=== PATIENT | female | born 1935 | race Caucasian/White ===

== ENCOUNTER 2017-03-09 19:02 | Emergency (ER) | payer MEDICARE, OTHER ==
[~2017-03-09] VITALS: Ht 154.9 cm; Wt 86.7 kg
[~2017-03-09 19:02] MED LIST: ATAC32TA4 PO; LASI20TA PO; REST0.05 OU
[2017-03-09 19:08] VITALS: BP 196/87; PULSE 77; RESP 18; TEMP 98.5; O2SAT 100
[2017-03-09] MEDS ORDERED: REST0.05 EACH EYE (19:14)
[2017-03-09] MEDS ORDERED: ATAC16TA4 PO (19:14)
--- NOTE | 2017-03-09 19:25 | PD ---
HPI Chief Complaint: Fall Time Seen by Provider: 19:21 Travel History International Travel<30 days: No Contact w/Intl Traveler<30days: No Traveled to known affect area: No History of Present Illness HPI The patient is an 82-year-old female that fell at approximately 5 PM, she slipped on a wet floor at her nail place. She hit the occipital area in the midline. She does have a local tenderness but denies any headache, nausea or vomiting. She denies any focal neurologic change. She is not on any anticoagulants. She denies any other injury other than muscle aches around the trapezius. Specifically, she denies any neck pain. PFSH Past Medical History Cancer: No Cardiomyopathy: Yes Cardiovascular Problems: Yes (HEART MURMUR) Diabetes: No Diminished Hearing: No Glaucoma: Yes Hepatitis: No Hiatal Hernia: No Hypertension: Yes Medical other: Yes (FRACTURED MANDILBLE) Respiratory: No Immunizations Current: Yes (flu [id number].) Thyroid Disease: No Tetanus Vaccination: Unknown ?: Not Menopausal: Yes : 0 Past Surgical History Abdominal Surgery: No Cardiac Surgery: No Ear Surgery: No Endocrine Surgery: No Eye Surgery: Yes (CATARACTS) Genitourinary Surgery: No Gynecologic Surgery: No Neurologic Surgery: No Oral Surgery: No Thoracic Surgery: Yes (BILATERAL BREAST BIOPSIES) Tonsillectomy: Yes Other Surgery: Yes (breast cysts removed- benign.) Social History Alcohol Use: Yes ("GLASS OF WINE DAILY") Tobacco Use: No (QUIT AGE 62) Substance Use: No Allergies-Medications (Allergen,Severity, Reaction): Coded Allergies: No Known Allergies (Verified , 03/09/17) Reported Meds & Prescriptions Reported Meds & Active Scripts Active Reported Restasis Opth 0.05% (Cyclosporine Opth 0.05%) 0.05% Emul 1 Drop EACH EYE BID Atacand Hct (Candesartan-Hydrochlorothiazide) 16-12.5 Mg Tab 1 Tab PO DAILY Review of Systems Except as stated in HPI: all other systems reviewed are Neg Physical Exam Narrative GENERAL: Well-nourished, alert and oriented, obese patient in minimal apparent distress with her occipital discomfort. Her vital signs show blood pressure 196 /87 but are otherwise normal. SKIN: Focused skin assessment warm/dry. HEAD: Normocephalic. EYES: No scleral icterus. No injection or drainage. NECK: Supple, trachea midline. No JVD or lymphadenopathy. There is no posterior spinous process tenderness or deformity. CARDIOVASCULAR: Regular rate and rhythm without murmurs, gallops, or rubs. RESPIRATORY: Breath sounds equal bilaterally. No accessory muscle use. GASTROINTESTINAL: Abdomen soft, non-tender, nondistended. MUSCULOSKELETAL: No cyanosis, or edema. There is tenderness over the trapezius bilaterally, no bony tenderness or deformity is present in this area. This appears to be only muscle tenderness. BACK: Nontender without obvious deformity. No CVA tenderness. Data Data Last Documented VS Vital Signs Date Time Temp Pulse Resp B/P (MAP) Pulse Ox O2 Delivery O2 Flow Rate FiO2 03/09/17 20:06 181/78 (112) 03/09/17 19:08 98.5 [address] Brain W/O Iv Contrast(Rout) (03/09/17 19:25) [facility] Medical Decision Making Medical Screen Exam Complete: Yes Emergency Medical Condition: Yes Medical Record Reviewed: Yes Interpretation(s) The CT scan shows no evidence of acute intracranial disease but does show atrophy and patchy periventricular white matter disease. Differential Diagnosis Skull fracture, intracranial bleed, scalp contusion Narrative Course The patient has a scalp contusion, there is no clinical or imaging evidence of anything more severe. Diagnosis Primary Impression: Contusion of scalp Additional Impression: Trapezius muscle strain Additional Instructions: As we discussed, you are likely developed more pain in the trapezius muscles in the next few days. A heating pad on its lowest setting and interposing a towel between the pad and your skin is sometimes useful. Plain Motrin and Tylenol also are ideal for this type of pain. Follow-up next week with your primary care physician if you are having problems. Disposition: 01 DISCHARGE HOME Condition: Stable Lauri Womack MD Mar 09, 2017 19:24
[2017-03-09 20:06] VITALS: BP 181/78
--- NOTE | 2017-03-09 20:07 | RADRPT ---
EXAM DATE/TIME: 03/09/2017 19:39 [facility] COMPARISON: No previous studies available for comparison. INDICATIONS : Status post fall today. Hit back of hear, no LOC RADIATION DOSE: 60.38 CTDIvol (mGy) MEDICAL HISTORY : Hypertension. Glaucoma, Hx of mandibular fracture. SURGICAL HISTORY : Tonsillectomy. Cataracts ENCOUNTER: Initial ACUITY: 1 day PAIN SCALE: 8/10 LOCATION: cranial TECHNIQUE: Multiple contiguous axial images were obtained of the head. Using automated exposure control and adj ustment of the mA and/or kV according to patient size, radiation dose was kept as low as reasonably a chievable to obtain optimal diagnostic quality images. DICOM format image data is available electro nically for review and comparison. FINDINGS: There is atrophy and patchy periventricular white matter disease and patchy attenuation decrease in t he bilateral centrum semiovale most likely on the basis of chronic microvascular ischemic disease. Ca rotid artery calcifications are noted bilaterally. There is hyperostosis frontalis interna. No fractu res. No hemorrhage, or mass. CONCLUSION: Atrophy and white matter disease. William Barrios MD on March 09, 2017 at 19:53 Board Certified Radiologist. This report was verified electronically.
== END 2017-03-09 20:34 | disposition home or self-care (01) ==
LOC: PHED 19:02
DX: S00.03XA Contusion of scalp, initial encounter (principal); S29.012A Strain of muscle and tendon of back wall of thorax, initial encounter; I42.9 Cardiomyopathy, unspecified; I10 Essential (primary) hypertension; Z87.891 Personal history of nicotine dependence
CPT/HCPCS: 70450

== ENCOUNTER 2017-09-18 17:17 | Emergency (ER) | payer MEDICARE, OTHER ==
[~2017-09-18] VITALS: Ht 154.9 cm; Wt 88.0 kg
[~2017-09-18 17:17] MED LIST changes: +ATAC16TA4 PO; -ATAC32TA4 PO; -LASI20TA PO; +REST0.05 EACH EYE; -REST0.05 OU
[2017-09-18 17:21] VITALS: BP 185/84; PULSE 83; RESP 16; TEMP 97.8; O2SAT 96
[2017-09-18] MEDS ORDERED: CEPH-460 PO (17:32)
[2017-09-18] MEDS ORDERED: BACT800T5 PO (17:32)
--- NOTE | 2017-09-18 17:35 | PD ---
HPI Chief Complaint: Skin Problem Time Seen by Provider: 17:23 Travel History International Travel<30 days: No Contact w/Intl Traveler<30days: No Traveled to known affect area: No History of Present Illness HPI 82-year-old female presents emergency department for evaluation of lesions to the left upper extremity that have been present for approximately 2 days. Patient states that she woke up with these lesions and does not know how she acquired them. Patient does not know if she was bit by anything. Says that the lesions have been red and pruritic. Says that when she ran hot water over the arm it did relieve some of the itching. She has not used any other over the counter medications for symptom relief. Denies new soaps, lotions, foods. Denies recent travel. Denies fevers or chills. Denies significant pain. Denies unusual shortness of breath. She has a history of COPD, HLD, HTN, ALIRIO, and dry eyes. Denies allergies to medications. PFSH Past Medical History Cancer: No Cardiomyopathy: Yes Cardiovascular Problems: Yes (HEART MURMUR) Diabetes: No Diminished Hearing: No Glaucoma: Yes Hepatitis: No Hiatal Hernia: No Hypertension: Yes Respiratory: No Immunizations Current: Yes (flu [id number].) Thyroid Disease: No Menopausal: Yes : 0 Past Surgical History Abdominal Surgery: No Cardiac Surgery: No Ear Surgery: No Endocrine Surgery: No Eye Surgery: Yes (CATARACTS) Genitourinary Surgery: No Gynecologic Surgery: No Neurologic Surgery: No Oral Surgery: No Thoracic Surgery: Yes (BILATERAL BREAST BIOPSIES) Tonsillectomy: Yes Other Surgery: Yes (breast cysts removed- benign.) Social History Alcohol Use: Yes ("GLASS OF WINE DAILY") Tobacco Use: No (QUIT AGE 62) Substance Use: No Allergies-Medications (Allergen,Severity, Reaction): Coded Allergies: No Known Allergies (Verified Adverse Reaction, Unknown, 09/18/17) Reported Meds & Prescriptions Reported Meds & Active Scripts Active Keflex (Cephalexin) 500 Mg Cap 500 Mg PO Q8H 7 Days Bactrim DS (Sulfamethoxazole-Trimethoprim) 800-160 Mg Tab 1 Tab PO BID Reported Atorvastatin (Atorvastatin Calcium) 20 Mg Tab 20 Mg PO HS Restasis Opth (Cyclosporine Opth) 0.05% Emul 1 Drop EACH EYE BID Atacand Hct (Candesartan-Hydrochlorothiazide) 16-12.5 Mg Tab 1 Tab PO DAILY Review of Systems Except as stated in HPI: all other systems reviewed are Neg Physical Exam Narrative GENERAL: Well-nourished, well-developed patient. SKIN: Focused skin assessment warm/dry. Left arm just proximal to elbow-area of erythema and edema approximately 14 cm. 2 round lesions measuring 1-2 cm over this area of edema. No expression of fluid. Lesions had similar appearance and texture to the surrounding skin. Unconvincing fluctuance to the lesions. Neurovascularly intact left upper extremity. HEAD: Normocephalic. EYES: No scleral icterus. No injection or drainage. NECK: Supple, trachea midline. No JVD or lymphadenopathy. CARDIOVASCULAR: Regular rate and rhythm without murmurs, gallops, or rubs. RESPIRATORY: Breath sounds equal bilaterally. No accessory muscle use. MUSCULOSKELETAL: No cyanosis, or edema. BACK: Nontender without obvious deformity. No CVA tenderness. Data Data Last Documented VS Vital Signs Date Time Temp Pulse Resp B/P (MAP) Pulse Ox O2 Delivery O2 Flow Rate FiO2 09/18/17 17:21 97.8 83 16 185/84 (117) 96 MDM Medical Decision Making Medical Screen Exam Complete: Yes Emergency Medical Condition: Yes Differential Diagnosis Left upper extremity cellulitis, erysipelas, abscess Narrative Course 82-year-old female presents emergency department for evaluation of lesions to the left upper extremity that have been present for approximately 2 days. Patient states that she woke up with these lesions and does not know how she acquired them. Patient does not know if she was bit by anything. Says that the lesions have been red and pruritic. Says that when she ran hot water over the arm it did relieve some of the itching. She has not used any other over the counter medications. Denies new soaps, lotions, foods. Denies recent travel. Denies fevers or chills. Denies significant pain. Denies unusual shortness of breath. She has a history of COPD, HLD, HTN, ALIRIO, and dry eye. Denies allergies to medications. Vital signs are stable. Physical exam findings consistent with 2 raised, round lesions with possible central puncta. The area measuring about [id number] has surrounding erythema and edema. The lesions do not appear to be large enough or convincing enough for benefit of a incision and drainage procedure. Patient will receive Keflex and Bactrim. She is advised to follow-up with her primary care physician for further treatment and evaluation. She may use [id number] antibiotics to reduce possibility of superficial skin infection however, your medications should take care of this. She is to return to the emergency department for worsening or persistent symptoms. Diagnosis Primary Impression: Cellulitis Qualified Codes: L03.114 - Cellulitis of left upper limb Referrals: Primary Care Physician Patient Instructions: Cellulitis (ED), General Instructions Additional Instructions: Follow up with your primary care physician within 2-3 days. Keep area clean and dry thoroughly after washing. You may use [id number] triple antibiotic ointments for the bites daily. You may also use [id number] Benadryl cream or hydrocortisone cream for the itching. If you developed increased redness, swelling, or pain return to the emergency department as this could be a sign of infection. Scripts Cephalexin (Keflex) 500 Mg Cap 500 MG PO Q8H for Infection for 7 Days, #21 CAP 0 Refills Prov: Declan Mooney MD 09/18/17 Sulfamethoxazole-Trimethoprim (Bactrim DS) 800-160 Mg Tab 1 TAB PO BID for Infection, #14 TAB 0 Refills Prov: Declan Mooney MD 09/18/17 Disposition: 01 DISCHARGE HOME Condition: Stable Génesis Stern Sep 18, 2017 17:35
[2017-09-18] MEDS ORDERED: ATOR20TA15 PO (17:37)
== END 2017-09-18 17:48 | disposition home or self-care (01) ==
LOC: PHEFT 17:17
DX: L03.114 Cellulitis of left upper limb (principal); J44.9 Chronic obstructive pulmonary disease, unspecified; E78.5 Hyperlipidemia, unspecified; I10 Essential (primary) hypertension; G47.33 Obstructive sleep apnea (adult) (pediatric); I42.9 Cardiomyopathy, unspecified; H40.9 Unspecified glaucoma; R01.1 Cardiac murmur, unspecified
CPT/HCPCS: 99283